=== PATIENT | male | born 1935 | race Caucasian/White ===

== ENCOUNTER 2017-10-30 12:41 | Inpatient (IN) ==
[2017-10-30 15:13] LABS: Basophils % 0.5 % (0.0-0.8); Eosinophils % 0.5 % (0.00-10.9); Hemoglobin 9.2 GM/DL (14.0-18.0); Immature Granulocytes % 0.8 %; Immature Granulocytes Absolute 0.05 #; Lymphocytes # 0.8 10*3/uL (1.4-4.0); Lymphocytes % 11.5 % (21.2-54.2); Mean Corpuscular HGB Conc 31.7 GM/DL (32-36); Mean Corpuscular Hemoglobin 32 PG (27-34); Mean Corpuscular Volume 99.7 FL (87-102); Mean Platelet Volume 9.6 FL (9.6-12.0); Monocytes # 0.5 10*3/uL (0.11-0.8); Monocytes % 7.4 % (1.7-12.7); Neutrophils # 5.2 10*3/uL (1.4-7.4); Neutrophils % 79.3 % (38.7-73.9); Platelet Count 144 T/CUMM (130-400); Red Blood Count 2.91 MC/CUMM (3.8-5.5); Red Cell Distribution Width 13.6 % (9.3-17.3); White Blood Count 6.5 T/CUMM (4-12)
[2017-10-30 15:38] LABS: Calcium 8.9 MG/DL (8.5-10.1); Osmolality,Calculated 293.8 MOS/KG (273-304); Potassium 3.9 MMOL/L (3.5-5.1)
[2017-10-30] MEDS ORDERED: ONDANSETRON 4 MG/2 ML VIAL IV PRN (17:48)
[2017-10-30] MEDS: PIPERACILLIN/TAZOBACTAM 3,375 MG in SODIUM CHLORIDE 0.9% 100 ML IV SCH (20:45)
[2017-10-30] MEDS: ENOXAPARIN 30 MG/0.3 ML SYRINGE SUBCUT SCH (20:45)
[2017-10-30] MEDS: ACETAMINOPHEN 325 MG TABLET PO PRN (20:46)
[2017-10-30] MEDS: TAMSULOSIN 0.4 MG CAPSULE PO SCH (20:46)
[2017-10-30 20:48] LABS: Apearance,Urine Slightly Hazy (Clear); Bilirubin,Urine Negative (Negative); Blood, Urine Small mg/dL (Negative); Glucose,Urine (UA) Negative (Negative); Ketones,Urine Negative (Negative); Mucus,Urine Occasional /LPF (Occasional); Nitrite,Urine Negative (Negative); Protein,Urine 30 MG/DL; RBC,Urine 3 /HPF (0-4); Squamous Epithelial Cell,Urine Occasional /HPF (0-10); Urine Color Yellow (Yellow); Urine Specific Gravity 1.012 (1.001-1.035); Urine Urobilinogen < 2.0 EU/DL (0.2-1.0); WBC,Urine 25 /HPF (0-6)
[2017-10-30] MEDS: ALBUTEROL/IPRATROPIUM 3 ML NEB RESP TX SCH (21:30)
[2017-10-31] MEDS: ALBUTEROL/IPRATROPIUM 3 ML NEB RESP TX SCH ×4 (00:21→19:33)
[2017-10-31 04:44] LABS: Basophils % 0.3 % (0.0-0.8); Eosinophils # 0.1 10*3/uL (0.0-0.87); Eosinophils % 1.3 % (0.00-10.9); Hematocrit 27.1 VOL% (42.0-52.0); Hemoglobin 8.9 GM/DL (14.0-18.0); Immature Granulocytes % 0.5 %; Immature Granulocytes Absolute 0.03 #; Lymphocytes % 15.3 % (21.2-54.2); Mean Corpuscular HGB Conc 32.8 GM/DL (32-36); Mean Corpuscular Hemoglobin 32 PG (27-34); Mean Corpuscular Volume 96.1 FL (87-102); Mean Platelet Volume 9.5 FL (9.6-12.0); Monocytes # 0.5 10*3/uL (0.11-0.8); Monocytes % 8.6 % (1.7-12.7); Neutrophils # 4.6 10*3/uL (1.4-7.4); Platelet Count 139 T/CUMM (130-400); Red Blood Count 2.82 MC/CUMM (3.8-5.5); Red Cell Distribution Width 13.6 % (9.3-17.3); White Blood Count 6.2 T/CUMM (4-12)
[2017-10-31 05:13] LABS: Ferritin 261.8 ng/ml (26-388)
[2017-10-31 05:19] LABS: Folate 13.1 NG/ML (5.4-24.0); Vitamin B12 1072 PG/ML (211-911)
[2017-10-31 05:19] LABS: Albumin 2.5 G/DL (3.4-5.0); Bilirubin,Total 0.6 MG/DL (0.2-1.0); Calcium 8.2 MG/DL (8.5-10.1); Potassium 3.6 MMOL/L (3.5-5.1); Thyroid Stimulating Hormone 2.35 uIU/ml (0.358-3.74); Total Protein 5.5 G/DL (6.4-8.3)
[2017-10-31] MEDS: PIPERACILLIN/TAZOBACTAM 3,375 MG in SODIUM CHLORIDE 0.9% 100 ML IV SCH ×2 (05:53→18:43)
[2017-10-31 08:06] LABS: Sedimentation Rate-Westergren 104 MM/HR (0-20)
[2017-10-31] MEDS: ESCITALOPRAM 10 MG TABLET PO SCH (09:06)
[2017-10-31] MEDS: SIMVASTATIN 20 MG TABLET PO SCH (09:06)
[2017-10-31] MEDS: MULTIVITAMIN (CENTRUM) TABLET PO SCH (09:06)
[2017-10-31] MEDS: FUROSEMIDE 40 MG/4 ML VIAL IV SCH (09:06)
[2017-10-31] MEDS: amLODIPine 10 MG TABLET PO SCH (09:06)
[2017-10-31] MEDS: ASPIRIN CHEW 81 MG TABLET PO SCH (09:06)
[2017-10-31] MEDS: POTASSIUM CHLORIDE 10 MEQ TABLET PO SCH (09:06)
[2017-10-31] MEDS: DOCUSATE SODIUM 100 MG CAPSULE PO PRN (09:06)
[2017-10-31] MEDS: TAMSULOSIN 0.4 MG CAPSULE PO SCH ×2 (09:06→21:16)
[2017-10-31] MEDS: AZITHROMYCIN INJ 500 MG in SODIUM CHLORIDE 0.9% 250 ML IV SCH (09:09)
[2017-10-31 10:22] LABS: Hemoglobin A1 (Alkaline) 97.1 % (96.5-98.5); Hemoglobin A2 (Alkaline) 2.9 % (1.5-3.5)
[2017-10-31] MEDS ORDERED: SKIN HEALING OINT (AQUAPHOR) 50 GM TUBE TOP PRN (13:47)
[2017-10-31 14:34] LABS: Creatinine,Urine Random 100 MG/DL; Total Protein,Urine Random 56 MG/DL; Urea Nitrogen, Urine Random 482 MG/DL
[2017-10-31] MEDS: ACETAMINOPHEN 325 MG TABLET PO PRN (21:16)
[2017-10-31] MEDS: ENOXAPARIN 30 MG/0.3 ML SYRINGE SUBCUT SCH (21:16)
[2017-11-01] MEDS: ALBUTEROL/IPRATROPIUM 3 ML NEB RESP TX SCH ×4 (00:45→20:05)
[2017-11-01] MEDS: PIPERACILLIN/TAZOBACTAM 3,375 MG in SODIUM CHLORIDE 0.9% 100 ML IV SCH ×2 (06:01→19:04)
[2017-11-01 06:16] LABS: Calcium 8.4 MG/DL (8.5-10.1); Osmolality,Calculated 294.7 MOS/KG (273-304); Potassium 4.2 MMOL/L (3.5-5.1)
[2017-11-01] MEDS: amLODIPine 10 MG TABLET PO SCH (09:48)
[2017-11-01] MEDS: ASPIRIN CHEW 81 MG TABLET PO SCH (09:48)
[2017-11-01] MEDS: SIMVASTATIN 20 MG TABLET PO SCH (09:48)
[2017-11-01] MEDS: FUROSEMIDE 40 MG/4 ML VIAL IV SCH (09:48)
[2017-11-01] MEDS: MULTIVITAMIN (CENTRUM) TABLET PO SCH (09:48)
[2017-11-01] MEDS: TAMSULOSIN 0.4 MG CAPSULE PO SCH ×2 (09:48→20:32)
[2017-11-01] MEDS: ESCITALOPRAM 10 MG TABLET PO SCH (09:49)
[2017-11-01] MEDS: POTASSIUM CHLORIDE 10 MEQ TABLET PO SCH (09:49)
[2017-11-01 10:03] LABS: Basophils % 0.5 % (0.0-0.8); Eosinophils # 0.1 10*3/uL (0.0-0.87); Eosinophils % 1.9 % (0.00-10.9); Hematocrit 29.5 VOL% (42.0-52.0); Hemoglobin 9.3 GM/DL (14.0-18.0); Immature Granulocytes % 0.5 %; Immature Granulocytes Absolute 0.03 #; Lymphocytes # 0.7 10*3/uL (1.4-4.0); Lymphocytes % 12.5 % (21.2-54.2); Mean Corpuscular HGB Conc 31.5 GM/DL (32-36); Mean Corpuscular Hemoglobin 31 PG (27-34); Mean Corpuscular Volume 98.3 FL (87-102); Mean Platelet Volume 9.6 FL (9.6-12.0); Monocytes # 0.5 10*3/uL (0.11-0.8); Monocytes % 8.6 % (1.7-12.7); Neutrophils # 4.4 10*3/uL (1.4-7.4); Platelet Count 134 T/CUMM (130-400); Red Cell Distribution Width 13.8 % (9.3-17.3); White Blood Count 5.8 T/CUMM (4-12)
[2017-11-01] MEDS: AZITHROMYCIN INJ 500 MG in SODIUM CHLORIDE 0.9% 250 ML IV SCH (10:26)
[2017-11-01] MEDS: miSOPROStol 200 MCG TABLET PO SCH ×3 (13:14→20:32)
[2017-11-01] MEDS: DILTIAZEM CD 180 MG CAPSULE PO SCH (13:14)
[2017-11-01] MEDS: ENOXAPARIN 30 MG/0.3 ML SYRINGE SUBCUT SCH (20:32)
[2017-11-02] MEDS: ALBUTEROL/IPRATROPIUM 3 ML NEB RESP TX SCH ×4 (03:00→20:25)
[2017-11-02] MEDS ORDERED: DILTIAZEM 50 MG/10 ML VIAL IV ONE ×2 (03:39→03:43)
[2017-11-02] MEDS ORDERED: DILTIAZEM 100 MG VIAL.ADD IV ONE (03:42)
[2017-11-02] MEDS: DILTIAZEM INJ 100 MG in SODIUM CHLORIDE 0.9% 100 ML IV SCH ×2 (03:51→10:09)
[2017-11-02 05:05] LABS: Basophils % 0.5 % (0.0-0.8); Eosinophils # 0.1 10*3/uL (0.0-0.87); Eosinophils % 0.8 % (0.00-10.9); Hematocrit 26.4 VOL% (42.0-52.0); Hemoglobin 8.8 GM/DL (14.0-18.0); Immature Granulocytes % 0.7 %; Immature Granulocytes Absolute 0.05 #; Lymphocytes % 13.3 % (21.2-54.2); Mean Corpuscular HGB Conc 33.3 GM/DL (32-36); Mean Corpuscular Hemoglobin 34 PG (27-34); Mean Corpuscular Volume 100.4 FL (87-102); Mean Platelet Volume 9.9 FL (9.6-12.0); Monocytes # 0.7 10*3/uL (0.11-0.8); Monocytes % 9.5 % (1.7-12.7); Neutrophils # 5.7 10*3/uL (1.4-7.4); Neutrophils % 75.2 % (38.7-73.9); Platelet Count 149 T/CUMM (130-400); Red Blood Count 2.63 MC/CUMM (3.8-5.5); White Blood Count 7.6 T/CUMM (4-12)
[2017-11-02 05:29] LABS: Calcium 8.6 MG/DL (8.5-10.1); Osmolality,Calculated 289.1 MOS/KG (273-304); Potassium 3.6 MMOL/L (3.5-5.1)
[2017-11-02] MEDS: miSOPROStol 200 MCG TABLET PO SCH ×4 (08:43→21:22)
[2017-11-02] MEDS: FUROSEMIDE 40 MG/4 ML VIAL IV SCH (08:43)
[2017-11-02] MEDS: DILTIAZEM CD 180 MG CAPSULE PO SCH (08:43)
[2017-11-02] MEDS: POTASSIUM CHLORIDE 10 MEQ TABLET PO SCH (08:44)
[2017-11-02] MEDS: ASPIRIN CHEW 81 MG TABLET PO SCH (08:44)
[2017-11-02] MEDS: amLODIPine 10 MG TABLET PO SCH (08:44)
[2017-11-02] MEDS: SIMVASTATIN 20 MG TABLET PO SCH (08:44)
[2017-11-02] MEDS: ESCITALOPRAM 10 MG TABLET PO SCH (08:44)
[2017-11-02] MEDS: MULTIVITAMIN (CENTRUM) TABLET PO SCH (08:44)
[2017-11-02] MEDS: TAMSULOSIN 0.4 MG CAPSULE PO SCH ×2 (08:44→21:22)
[2017-11-02] MEDS: AZITHROMYCIN INJ 500 MG in SODIUM CHLORIDE 0.9% 250 ML IV SCH (15:28)
[2017-11-02] MEDS: PIPERACILLIN/TAZOBACTAM 3,375 MG in SODIUM CHLORIDE 0.9% 100 ML IV SCH (15:29)
[2017-11-02] MEDS: DILTIAZEM CD 240 MG CAPSULE PO SCH ×2 (15:30→21:22)
[2017-11-02] MEDS: ENOXAPARIN 30 MG/0.3 ML SYRINGE SUBCUT SCH (21:22)
[2017-11-02] MEDS: ATORVASTATIN 20 MG TABLET PO SCH (21:22)
[2017-11-03] MEDS: ALBUTEROL/IPRATROPIUM 3 ML NEB RESP TX SCH ×4 (01:10→18:54)
[2017-11-03] MEDS: PIPERACILLIN/TAZOBACTAM 3,375 MG in SODIUM CHLORIDE 0.9% 100 ML IV SCH ×2 (02:34→17:07)
[2017-11-03 05:17] LABS: Basophils % 0.3 % (0.0-0.8); Eosinophils # 0.1 10*3/uL (0.0-0.87); Eosinophils % 0.8 % (0.00-10.9); Hematocrit 24.7 VOL% (42.0-52.0); Hemoglobin 7.8 GM/DL (14.0-18.0); Immature Granulocytes % 0.6 %; Immature Granulocytes Absolute 0.04 #; Lymphocytes # 0.8 10*3/uL (1.4-4.0); Lymphocytes % 12.6 % (21.2-54.2); Mean Corpuscular HGB Conc 31.6 GM/DL (32-36); Mean Corpuscular Hemoglobin 31 PG (27-34); Mean Corpuscular Volume 98.4 FL (87-102); Mean Platelet Volume 9.6 FL (9.6-12.0); Monocytes # 0.7 10*3/uL (0.11-0.8); Monocytes % 10.8 % (1.7-12.7); Neutrophils # 4.9 10*3/uL (1.4-7.4); Neutrophils % 74.9 % (38.7-73.9); Platelet Count 133 T/CUMM (130-400); Red Blood Count 2.51 MC/CUMM (3.8-5.5); Red Cell Distribution Width 14.3 % (9.3-17.3); White Blood Count 6.5 T/CUMM (4-12)
[2017-11-03 05:49] LABS: Calcium 8.3 MG/DL (8.5-10.1); Osmolality,Calculated 290.1 MOS/KG (273-304); Potassium 3.6 MMOL/L (3.5-5.1)
[2017-11-03] MEDS: DILTIAZEM INJ 100 MG in SODIUM CHLORIDE 0.9% 100 ML IV SCH (08:47)
[2017-11-03] MEDS ORDERED: amLODIPine 5 MG TABLET PO SCH (09:00)
[2017-11-03] MEDS: DILTIAZEM CD 240 MG CAPSULE PO SCH ×2 (09:17→20:43)
[2017-11-03] MEDS: TAMSULOSIN 0.4 MG CAPSULE PO SCH ×2 (09:17→20:43)
[2017-11-03] MEDS: DOCUSATE SODIUM 100 MG CAPSULE PO PRN (09:17)
[2017-11-03] MEDS: miSOPROStol 200 MCG TABLET PO SCH (09:17)
[2017-11-03] MEDS: ESCITALOPRAM 10 MG TABLET PO SCH (09:17)
[2017-11-03] MEDS: POTASSIUM CHLORIDE 10 MEQ TABLET PO SCH (09:17)
[2017-11-03] MEDS: ASPIRIN CHEW 81 MG TABLET PO SCH (09:17)
[2017-11-03] MEDS: MULTIVITAMIN (CENTRUM) TABLET PO SCH (09:17)
[2017-11-03] MEDS: FUROSEMIDE 40 MG TABLET PO SCH (09:18)
[2017-11-03] MEDS: ACETAMINOPHEN 325 MG TABLET PO PRN (09:23)
[2017-11-03] MEDS ORDERED: SODIUM CHLORIDE 0.9% 1,000 ML IV PRN (09:40)
[2017-11-03] MEDS ORDERED: PIPERACILLIN/TAZOBACTAM 2,250 MG in SODIUM CHLORIDE 0.9% 100 ML IV SCH (10:00)
[2017-11-03] MEDS: SKIN HEALING OINT (AQUAPHOR) 50 GM TUBE TOP SCH ×2 (14:39→22:38)
[2017-11-03] MEDS: AZITHROMYCIN INJ 500 MG in SODIUM CHLORIDE 0.9% 250 ML IV SCH (14:39)
[2017-11-03 17:39] LABS: Hematocrit 27.9 VOL% (42.0-52.0); Hemoglobin 8.8 GM/DL (14.0-18.0)
[2017-11-03] MEDS: ATORVASTATIN 20 MG TABLET PO SCH (20:43)
[2017-11-03] MEDS: ENOXAPARIN 30 MG/0.3 ML SYRINGE SUBCUT SCH (20:44)
[2017-11-04] MEDS: ALBUTEROL/IPRATROPIUM 3 ML NEB RESP TX SCH ×4 (01:12→19:35)
[2017-11-04] MEDS: ACETAMINOPHEN 325 MG TABLET PO PRN ×2 (03:10→09:07)
[2017-11-04] MEDS: DILTIAZEM INJ 100 MG in SODIUM CHLORIDE 0.9% 100 ML IV SCH (03:59)
[2017-11-04] MEDS: PIPERACILLIN/TAZOBACTAM 3,375 MG in SODIUM CHLORIDE 0.9% 100 ML IV SCH ×2 (06:14→17:13)
[2017-11-04] MEDS: SKIN HEALING OINT (AQUAPHOR) 50 GM TUBE TOP SCH ×2 (09:06→20:20)
[2017-11-04] MEDS: TAMSULOSIN 0.4 MG CAPSULE PO SCH ×2 (09:07→20:20)
[2017-11-04] MEDS: ESCITALOPRAM 10 MG TABLET PO SCH (09:07)
[2017-11-04] MEDS: DILTIAZEM CD 240 MG CAPSULE PO SCH ×2 (09:07→20:19)
[2017-11-04] MEDS: FUROSEMIDE 40 MG TABLET PO SCH (09:07)
[2017-11-04] MEDS: MULTIVITAMIN (CENTRUM) TABLET PO SCH (09:07)
[2017-11-04] MEDS: ASPIRIN CHEW 81 MG TABLET PO SCH (09:07)
[2017-11-04] MEDS: POTASSIUM CHLORIDE 10 MEQ TABLET PO SCH (09:07)
[2017-11-04] MEDS: AZITHROMYCIN INJ 500 MG in SODIUM CHLORIDE 0.9% 250 ML IV SCH (15:30)
[2017-11-04] MEDS: ENOXAPARIN 30 MG/0.3 ML SYRINGE SUBCUT SCH (20:20)
[2017-11-04] MEDS: ATORVASTATIN 20 MG TABLET PO SCH (21:09)
[2017-11-05] MEDS: ALBUTEROL/IPRATROPIUM 3 ML NEB RESP TX SCH ×4 (00:35→20:34)
[2017-11-05] MEDS: ACETAMINOPHEN 325 MG TABLET PO PRN ×3 (01:29→20:21)
[2017-11-05 06:01] LABS: Calcium 8.3 MG/DL (8.5-10.1); Potassium 3.4 MMOL/L (3.5-5.1)
[2017-11-05] MEDS: PIPERACILLIN/TAZOBACTAM 3,375 MG in SODIUM CHLORIDE 0.9% 100 ML IV SCH ×2 (06:28→17:24)
[2017-11-05] MEDS: DILTIAZEM CD 240 MG CAPSULE PO SCH ×2 (08:30→20:22)
[2017-11-05] MEDS: TAMSULOSIN 0.4 MG CAPSULE PO SCH ×2 (08:30→20:22)
[2017-11-05] MEDS: FUROSEMIDE 40 MG TABLET PO SCH (08:30)
[2017-11-05] MEDS: POTASSIUM CHLORIDE 10 MEQ TABLET PO SCH (08:30)
[2017-11-05] MEDS: MULTIVITAMIN (CENTRUM) TABLET PO SCH (08:30)
[2017-11-05] MEDS: ASPIRIN CHEW 81 MG TABLET PO SCH (08:31)
[2017-11-05] MEDS: SKIN HEALING OINT (AQUAPHOR) 50 GM TUBE TOP SCH ×2 (08:31→20:25)
[2017-11-05] MEDS: ESCITALOPRAM 10 MG TABLET PO SCH (08:31)
[2017-11-05] MEDS: POLYVINYL ALCOHOL 1.4% OPH SOLN 15 ML BOTTLE BOTH EYES SCH ×2 (14:55→20:24)
[2017-11-05] MEDS: AZITHROMYCIN INJ 500 MG in SODIUM CHLORIDE 0.9% 250 ML IV SCH (14:56)
[2017-11-05] MEDS: ENOXAPARIN 30 MG/0.3 ML SYRINGE SUBCUT SCH (20:22)
[2017-11-05] MEDS: ATORVASTATIN 20 MG TABLET PO SCH (20:22)
[2017-11-06] MEDS: ALBUTEROL/IPRATROPIUM 3 ML NEB RESP TX SCH ×4 (01:26→19:19)
[2017-11-06 05:53] LABS: Calcium 8.2 MG/DL (8.5-10.1); Osmolality,Calculated 290.1 MOS/KG (273-304); Potassium 3.3 MMOL/L (3.5-5.1)
[2017-11-06] MEDS: PIPERACILLIN/TAZOBACTAM 3,375 MG in SODIUM CHLORIDE 0.9% 100 ML IV SCH (06:13)
[2017-11-06] MEDS ORDERED: FUROSEMIDE 40 MG TABLET PO SCH (09:00)
[2017-11-06] MEDS: ESCITALOPRAM 10 MG TABLET PO SCH (09:33)
[2017-11-06] MEDS: MULTIVITAMIN (CENTRUM) TABLET PO SCH (09:33)
[2017-11-06] MEDS: ASPIRIN CHEW 81 MG TABLET PO SCH (09:33)
[2017-11-06] MEDS: DILTIAZEM CD 240 MG CAPSULE PO SCH ×2 (09:33→20:59)
[2017-11-06] MEDS: SKIN HEALING OINT (AQUAPHOR) 50 GM TUBE TOP SCH ×2 (09:34→20:59)
[2017-11-06] MEDS: POTASSIUM CHLORIDE 10 MEQ TABLET PO SCH (09:34)
[2017-11-06] MEDS: TAMSULOSIN 0.4 MG CAPSULE PO SCH ×2 (09:34→20:59)
[2017-11-06] MEDS ORDERED: DIAZEPAM 5 MG TABLET PO ONE (10:12)
[2017-11-06] MEDS: traMADol 50 MG TABLET PO PRN (10:15)
[2017-11-06] MEDS: POLYVINYL ALCOHOL 1.4% OPH SOLN 15 ML BOTTLE BOTH EYES SCH ×3 (10:16→20:59)
[2017-11-06 10:55] LABS: INR 1.1; PT Patient Result 11.2 SECS
[2017-11-06] MEDS: FUROSEMIDE 40 MG/4 ML VIAL IV SCH (16:12)
[2017-11-06] MEDS: ATORVASTATIN 20 MG TABLET PO SCH (20:59)
[2017-11-06] MEDS: ENOXAPARIN 30 MG/0.3 ML SYRINGE SUBCUT SCH (20:59)
[2017-11-07] MEDS: ALBUTEROL/IPRATROPIUM 3 ML NEB RESP TX SCH ×4 (01:00→20:15)
[2017-11-07 05:42] LABS: Basophils % 0.7 % (0.0-0.8); Eosinophils # 0.1 10*3/uL (0.0-0.87); Eosinophils % 2.2 % (0.00-10.9); Hematocrit 27.7 VOL% (42.0-52.0); Hemoglobin 8.9 GM/DL (14.0-18.0); Immature Granulocytes % 0.4 %; Immature Granulocytes Absolute 0.02 #; Lymphocytes # 0.7 10*3/uL (1.4-4.0); Lymphocytes % 11.9 % (21.2-54.2); Mean Corpuscular HGB Conc 32.1 GM/DL (32-36); Mean Corpuscular Hemoglobin 31 PG (27-34); Mean Corpuscular Volume 97.2 FL (87-102); Mean Platelet Volume 9.2 FL (9.6-12.0); Monocytes # 0.6 10*3/uL (0.11-0.8); Monocytes % 10.1 % (1.7-12.7); Neutrophils # 4.1 10*3/uL (1.4-7.4); Neutrophils % 74.7 % (38.7-73.9); Platelet Count 152 T/CUMM (130-400); Red Blood Count 2.85 MC/CUMM (3.8-5.5); Red Cell Distribution Width 13.7 % (9.3-17.3); White Blood Count 5.5 T/CUMM (4-12)
[2017-11-07 07:57] LABS: Cancer Antigen 19-9 13.1 U/ML (0-37); Carcinoembryonic Antigen 2.1 NG/ML (0.0-5.0)
[2017-11-07] MEDS: FUROSEMIDE 40 MG/4 ML VIAL IV SCH ×2 (08:32→15:42)
[2017-11-07] MEDS: DILTIAZEM CD 240 MG CAPSULE PO SCH ×2 (08:32→21:16)
[2017-11-07] MEDS: POTASSIUM CHLORIDE 10 MEQ TABLET PO SCH (08:33)
[2017-11-07] MEDS: traMADol 50 MG TABLET PO PRN ×2 (08:33→16:45)
[2017-11-07] MEDS: ESCITALOPRAM 10 MG TABLET PO SCH (08:33)
[2017-11-07] MEDS: MULTIVITAMIN (CENTRUM) TABLET PO SCH (08:33)
[2017-11-07] MEDS: ASPIRIN CHEW 81 MG TABLET PO SCH (08:33)
[2017-11-07] MEDS: TAMSULOSIN 0.4 MG CAPSULE PO SCH ×2 (08:33→21:16)
[2017-11-07] MEDS: POLYVINYL ALCOHOL 1.4% OPH SOLN 15 ML BOTTLE BOTH EYES SCH ×3 (08:34→21:16)
[2017-11-07] MEDS: SKIN HEALING OINT (AQUAPHOR) 50 GM TUBE TOP SCH ×2 (08:34→21:17)
[2017-11-07] MEDS: CIPROFLOXACIN 500 MG TABLET PO SCH (15:42)
[2017-11-07] MEDS: ATORVASTATIN 20 MG TABLET PO SCH (21:16)
[2017-11-07] MEDS: ENOXAPARIN 30 MG/0.3 ML SYRINGE SUBCUT SCH (21:16)
[2017-11-08 05:47] LABS: Basophils % 0.5 % (0.0-0.8); Eosinophils # 0.1 10*3/uL (0.0-0.87); Eosinophils % 1.7 % (0.00-10.9); Hematocrit 28.8 VOL% (42.0-52.0); Hemoglobin 9.3 GM/DL (14.0-18.0); Immature Granulocytes % 0.3 %; Immature Granulocytes Absolute 0.02 #; Lymphocytes # 0.7 10*3/uL (1.4-4.0); Mean Corpuscular HGB Conc 32.3 GM/DL (32-36); Mean Corpuscular Hemoglobin 31 PG (27-34); Mean Corpuscular Volume 96.6 FL (87-102); Mean Platelet Volume 9.3 FL (9.6-12.0); Monocytes # 0.6 10*3/uL (0.11-0.8); Monocytes % 9.8 % (1.7-12.7); Neutrophils % 76.7 % (38.7-73.9); Platelet Count 168 T/CUMM (130-400); Red Blood Count 2.98 MC/CUMM (3.8-5.5); Red Cell Distribution Width 13.5 % (9.3-17.3); White Blood Count 6.5 T/CUMM (4-12)
[2017-11-08 06:23] LABS: Calcium 8.9 MG/DL (8.5-10.1); Osmolality,Calculated 287.4 MOS/KG (273-304)
[2017-11-08 06:24] LABS: Albumin 2.2 G/DL (3.4-5.0); Calcium 9.1 MG/DL (8.5-10.1); Osmolality,Calculated 289.3 MOS/KG (273-304); Potassium 3.1 MMOL/L (3.5-5.1)
[2017-11-08] MEDS: ALBUTEROL/IPRATROPIUM 3 ML NEB RESP TX SCH ×4 (07:52→19:53)
[2017-11-08] MEDS: FUROSEMIDE 40 MG/4 ML VIAL IV SCH ×2 (08:39→17:02)
[2017-11-08] MEDS: DILTIAZEM CD 240 MG CAPSULE PO SCH ×2 (08:40→21:41)
[2017-11-08] MEDS: ESCITALOPRAM 10 MG TABLET PO SCH (08:40)
[2017-11-08] MEDS: MULTIVITAMIN (CENTRUM) TABLET PO SCH (08:40)
[2017-11-08] MEDS: POTASSIUM CHLORIDE 10 MEQ TABLET PO SCH (08:41)
[2017-11-08] MEDS: CIPROFLOXACIN 500 MG TABLET PO SCH (08:41)
[2017-11-08] MEDS: ASPIRIN CHEW 81 MG TABLET PO SCH (08:41)
[2017-11-08] MEDS: POLYVINYL ALCOHOL 1.4% OPH SOLN 15 ML BOTTLE BOTH EYES SCH ×3 (08:41→21:42)
[2017-11-08] MEDS: SKIN HEALING OINT (AQUAPHOR) 50 GM TUBE TOP SCH ×2 (08:41→21:42)
[2017-11-08] MEDS: TAMSULOSIN 0.4 MG CAPSULE PO SCH ×2 (08:41→21:41)
[2017-11-08] MEDS: traMADol 50 MG TABLET PO PRN (11:49)
[2017-11-08] MEDS ORDERED: POTASSIUM CHLORIDE 20 MEQ TABLET PO STA (12:48)
[2017-11-08 14:11] LABS: % Iron Saturation 17.2 % (18-50); Ferritin 609.3 ng/ml (26-388)
[2017-11-08] MEDS: ENOXAPARIN 30 MG/0.3 ML SYRINGE SUBCUT SCH (21:41)
[2017-11-08] MEDS: POTASSIUM CHLORIDE 20 MEQ TABLET PO PRN (21:41)
[2017-11-08] MEDS: ATORVASTATIN 20 MG TABLET PO SCH (21:41)
[2017-11-09] MEDS: ALBUTEROL/IPRATROPIUM 3 ML NEB RESP TX SCH ×4 (01:44→18:55)
[2017-11-09 05:14] LABS: Basophils % 0.6 % (0.0-0.8); Eosinophils # 0.1 10*3/uL (0.0-0.87); Eosinophils % 1.7 % (0.00-10.9); Hematocrit 27.5 VOL% (42.0-52.0); Hemoglobin 8.9 GM/DL (14.0-18.0); Immature Granulocytes % 0.8 %; Immature Granulocytes Absolute 0.06 #; Lymphocytes # 0.7 10*3/uL (1.4-4.0); Lymphocytes % 9.8 % (21.2-54.2); Mean Corpuscular HGB Conc 32.4 GM/DL (32-36); Mean Corpuscular Hemoglobin 31 PG (27-34); Mean Corpuscular Volume 96.5 FL (87-102); Monocytes # 0.8 10*3/uL (0.11-0.8); Monocytes % 10.4 % (1.7-12.7); Neutrophils # 5.5 10*3/uL (1.4-7.4); Neutrophils % 76.7 % (38.7-73.9); Platelet Count 157 T/CUMM (130-400); Red Blood Count 2.85 MC/CUMM (3.8-5.5); Red Cell Distribution Width 13.4 % (9.3-17.3); White Blood Count 7.2 T/CUMM (4-12)
[2017-11-09 06:01] LABS: Albumin 2.3 G/DL (3.4-5.0); Calcium 8.9 MG/DL (8.5-10.1); Osmolality,Calculated 287.4 MOS/KG (273-304); Potassium 3.3 MMOL/L (3.5-5.1)
[2017-11-09] MEDS: POTASSIUM CHLORIDE 20 MEQ TABLET PO PRN ×3 (06:43→11:55)
[2017-11-09] MEDS: TAMSULOSIN 0.4 MG CAPSULE PO SCH ×2 (09:04→20:56)
[2017-11-09] MEDS: DILTIAZEM CD 240 MG CAPSULE PO SCH ×2 (09:04→20:56)
[2017-11-09] MEDS: CIPROFLOXACIN 500 MG TABLET PO SCH (09:04)
[2017-11-09] MEDS: MULTIVITAMIN (CENTRUM) TABLET PO SCH (09:04)
[2017-11-09] MEDS: ESCITALOPRAM 10 MG TABLET PO SCH (09:05)
[2017-11-09] MEDS: POTASSIUM CHLORIDE 10 MEQ TABLET PO SCH (09:05)
[2017-11-09] MEDS: POLYVINYL ALCOHOL 1.4% OPH SOLN 15 ML BOTTLE BOTH EYES SCH ×3 (09:05→21:03)
[2017-11-09] MEDS: SKIN HEALING OINT (AQUAPHOR) 50 GM TUBE TOP SCH ×2 (09:05→21:03)
[2017-11-09] MEDS: FUROSEMIDE 40 MG/4 ML VIAL IV SCH ×2 (09:05→16:22)
[2017-11-09] MEDS: ASPIRIN CHEW 81 MG TABLET PO SCH (09:05)
[2017-11-09] MEDS ORDERED: POTASSIUM CHLORIDE 20 MEQ TABLET PO ONE (11:48)
[2017-11-09] MEDS: ENOXAPARIN 30 MG/0.3 ML SYRINGE SUBCUT SCH (20:56)
[2017-11-09] MEDS: ATORVASTATIN 20 MG TABLET PO SCH (20:56)
[2017-11-09] MEDS: traMADol 50 MG TABLET PO PRN (21:00)
[2017-11-10] MEDS: ALBUTEROL/IPRATROPIUM 3 ML NEB RESP TX SCH ×4 (01:25→19:44)
[2017-11-10 05:29] LABS: Basophils % 0.3 % (0.0-0.8); Eosinophils # 0.1 10*3/uL (0.0-0.87); Eosinophils % 1.3 % (0.00-10.9); Hematocrit 25.7 VOL% (42.0-52.0); Hemoglobin 8.7 GM/DL (14.0-18.0); Immature Granulocytes % 0.5 %; Immature Granulocytes Absolute 0.03 #; Lymphocytes # 0.7 10*3/uL (1.4-4.0); Lymphocytes % 11.4 % (21.2-54.2); Mean Corpuscular HGB Conc 33.9 GM/DL (32-36); Mean Corpuscular Hemoglobin 32 PG (27-34); Mean Corpuscular Volume 94.5 FL (87-102); Mean Platelet Volume 9.2 FL (9.6-12.0); Monocytes # 0.6 10*3/uL (0.11-0.8); Monocytes % 9.7 % (1.7-12.7); Neutrophils # 4.8 10*3/uL (1.4-7.4); Neutrophils % 76.8 % (38.7-73.9); Platelet Count 166 T/CUMM (130-400); Red Blood Count 2.72 MC/CUMM (3.8-5.5); Red Cell Distribution Width 13.6 % (9.3-17.3); White Blood Count 6.3 T/CUMM (4-12)
[2017-11-10 05:59] LABS: Albumin 2.2 G/DL (3.4-5.0); Calcium 8.6 MG/DL (8.5-10.1); Osmolality,Calculated 288.3 MOS/KG (273-304); Potassium 3.4 MMOL/L (3.5-5.1)
[2017-11-10 06:00] LABS: Osmolality,Calculated 287.4 MOS/KG (273-304); Potassium 3.3 MMOL/L (3.5-5.1)
[2017-11-10] MEDS: TAMSULOSIN 0.4 MG CAPSULE PO SCH ×2 (09:14→21:11)
[2017-11-10] MEDS: POTASSIUM CHLORIDE 10 MEQ TABLET PO SCH (09:14)
[2017-11-10] MEDS: DILTIAZEM CD 240 MG CAPSULE PO SCH ×2 (09:14→21:11)
[2017-11-10] MEDS: CIPROFLOXACIN 500 MG TABLET PO SCH (09:14)
[2017-11-10] MEDS: MULTIVITAMIN (CENTRUM) TABLET PO SCH (09:14)
[2017-11-10] MEDS: FUROSEMIDE 40 MG/4 ML VIAL IV SCH ×2 (09:15→16:04)
[2017-11-10] MEDS: ESCITALOPRAM 10 MG TABLET PO SCH (09:15)
[2017-11-10] MEDS: SKIN HEALING OINT (AQUAPHOR) 50 GM TUBE TOP SCH ×2 (09:15→21:11)
[2017-11-10] MEDS: ASPIRIN CHEW 81 MG TABLET PO SCH (09:15)
[2017-11-10] MEDS: POLYVINYL ALCOHOL 1.4% OPH SOLN 15 ML BOTTLE BOTH EYES SCH ×3 (09:15→21:11)
[2017-11-10] MEDS: ATORVASTATIN 20 MG TABLET PO SCH (21:11)
[2017-11-10] MEDS: ENOXAPARIN 30 MG/0.3 ML SYRINGE SUBCUT SCH (21:12)
[2017-11-11] MEDS: ALBUTEROL/IPRATROPIUM 3 ML NEB RESP TX SCH ×4 (00:19→20:25)
[2017-11-11] MEDS: MULTIVITAMIN (CENTRUM) TABLET PO SCH (09:36)
[2017-11-11] MEDS: POTASSIUM CHLORIDE 20 MEQ TABLET PO PRN (09:36)
[2017-11-11] MEDS: ESCITALOPRAM 10 MG TABLET PO SCH (09:36)
[2017-11-11] MEDS: DILTIAZEM CD 240 MG CAPSULE PO SCH (09:36)
[2017-11-11] MEDS: FUROSEMIDE 40 MG/4 ML VIAL IV SCH ×2 (09:36→17:34)
[2017-11-11] MEDS: CIPROFLOXACIN 500 MG TABLET PO SCH (09:36)
[2017-11-11] MEDS: ASPIRIN CHEW 81 MG TABLET PO SCH (09:36)
[2017-11-11] MEDS: TAMSULOSIN 0.4 MG CAPSULE PO SCH ×2 (09:36→21:12)
[2017-11-11] MEDS: POLYVINYL ALCOHOL 1.4% OPH SOLN 15 ML BOTTLE BOTH EYES SCH ×3 (09:37→21:12)
[2017-11-11] MEDS: SKIN HEALING OINT (AQUAPHOR) 50 GM TUBE TOP SCH ×2 (09:37→21:12)
[2017-11-11] MEDS: POTASSIUM CHLORIDE 10 MEQ TABLET PO SCH (09:43)
[2017-11-11] MEDS: traMADol 50 MG TABLET PO PRN (09:47)
[2017-11-11] MEDS: ACETAMINOPHEN 325 MG TABLET PO PRN (11:44)
[2017-11-11] MEDS: ENOXAPARIN 30 MG/0.3 ML SYRINGE SUBCUT SCH (21:12)
[2017-11-11] MEDS: ATORVASTATIN 20 MG TABLET PO SCH (21:12)
[2017-11-12] MEDS: DILTIAZEM CD 240 MG CAPSULE PO SCH ×3 (00:02→21:16)
[2017-11-12] MEDS: ALBUTEROL/IPRATROPIUM 3 ML NEB RESP TX SCH ×4 (00:49→21:16)
[2017-11-12] MEDS: FUROSEMIDE 40 MG/4 ML VIAL IV SCH ×2 (08:48→16:12)
[2017-11-12] MEDS: CIPROFLOXACIN 500 MG TABLET PO SCH (08:49)
[2017-11-12] MEDS: ESCITALOPRAM 10 MG TABLET PO SCH (08:49)
[2017-11-12] MEDS: ASPIRIN CHEW 81 MG TABLET PO SCH (08:49)
[2017-11-12] MEDS: TAMSULOSIN 0.4 MG CAPSULE PO SCH ×2 (08:49→21:16)
[2017-11-12] MEDS: MULTIVITAMIN (CENTRUM) TABLET PO SCH (08:49)
[2017-11-12] MEDS: POTASSIUM CHLORIDE 20 MEQ TABLET PO PRN (08:49)
[2017-11-12] MEDS: SKIN HEALING OINT (AQUAPHOR) 50 GM TUBE TOP SCH ×2 (08:50→21:16)
[2017-11-12] MEDS: POLYVINYL ALCOHOL 1.4% OPH SOLN 15 ML BOTTLE BOTH EYES SCH ×3 (08:50→21:16)
[2017-11-12] MEDS: POTASSIUM CHLORIDE 10 MEQ TABLET PO SCH (08:56)
[2017-11-12] MEDS: ENOXAPARIN 30 MG/0.3 ML SYRINGE SUBCUT SCH (21:16)
[2017-11-12] MEDS: ATORVASTATIN 20 MG TABLET PO SCH (21:16)
[2017-11-13] MEDS: ALBUTEROL/IPRATROPIUM 3 ML NEB RESP TX SCH ×4 (03:26→19:41)
[2017-11-13] MEDS: DILTIAZEM CD 240 MG CAPSULE PO SCH ×2 (08:34→21:02)
[2017-11-13] MEDS: SKIN HEALING OINT (AQUAPHOR) 50 GM TUBE TOP SCH ×2 (08:34→21:02)
[2017-11-13] MEDS: MULTIVITAMIN (CENTRUM) TABLET PO SCH (08:34)
[2017-11-13] MEDS: POTASSIUM CHLORIDE 10 MEQ TABLET PO SCH (08:35)
[2017-11-13] MEDS: FUROSEMIDE 40 MG/4 ML VIAL IV SCH ×2 (08:35→15:55)
[2017-11-13] MEDS: CIPROFLOXACIN 500 MG TABLET PO SCH (08:35)
[2017-11-13] MEDS: TAMSULOSIN 0.4 MG CAPSULE PO SCH ×2 (08:35→21:02)
[2017-11-13] MEDS: ASPIRIN CHEW 81 MG TABLET PO SCH (08:35)
[2017-11-13] MEDS: ESCITALOPRAM 10 MG TABLET PO SCH (08:35)
[2017-11-13] MEDS: POLYVINYL ALCOHOL 1.4% OPH SOLN 15 ML BOTTLE BOTH EYES SCH ×3 (08:35→21:02)
[2017-11-13] MEDS ORDERED: TUBERCULIN SKIN TEST 0.1 ML SYRINGE INTRADERM ONE (11:00)
[2017-11-13] MEDS: ENOXAPARIN 30 MG/0.3 ML SYRINGE SUBCUT SCH (21:02)
[2017-11-13] MEDS: ATORVASTATIN 20 MG TABLET PO SCH (21:02)
[2017-11-14] MEDS: ALBUTEROL/IPRATROPIUM 3 ML NEB RESP TX SCH ×2 (00:50→07:26)
[2017-11-14 08:13] VITALS: BP 141/85
[2017-11-14] MEDS: FUROSEMIDE 40 MG/4 ML VIAL IV SCH (08:42)
[2017-11-14] MEDS: ESCITALOPRAM 10 MG TABLET PO SCH (08:43)
[2017-11-14] MEDS: POLYVINYL ALCOHOL 1.4% OPH SOLN 15 ML BOTTLE BOTH EYES SCH (08:43)
[2017-11-14] MEDS: POTASSIUM CHLORIDE 10 MEQ TABLET PO SCH (08:43)
[2017-11-14] MEDS: DILTIAZEM CD 240 MG CAPSULE PO SCH (08:43)
[2017-11-14] MEDS: SKIN HEALING OINT (AQUAPHOR) 50 GM TUBE TOP SCH (08:43)
[2017-11-14] MEDS: MULTIVITAMIN (CENTRUM) TABLET PO SCH (08:43)
[2017-11-14] MEDS: CIPROFLOXACIN 500 MG TABLET PO SCH (08:43)
[2017-11-14] MEDS: TAMSULOSIN 0.4 MG CAPSULE PO SCH (08:43)
[2017-11-14] MEDS: ASPIRIN CHEW 81 MG TABLET PO SCH (08:43)
== END 2017-11-14 12:20 | disposition hospice, home (50) | DRG 291 ==
LOC: N.ED 12:41 → N.EDINP 16:39 → SUATTDRO 16:39 → N.TELEN 18:28
PROVIDERS: ADMIT Hospitalist